=== PATIENT | female | born 1955 | race Caucasian/White ===

== ENCOUNTER 2020-09-09 08:11 | Day surgery (SDC) | payer OTHER, SELFPAY ==
[2020-09-09 08:45] VITALS: BMI 23.1
[2020-09-09] MEDS: Lactated Ringers 500 ML 20 ML IVCONT (08:45)
--- NOTE | 2020-09-09 08:50 | HO.ANESPROP2 ---
PMFSH Surgical History Surgical History Hx of section Hx of colonoscopy Hx of tubal ligation Social History Social History Patient Tobacco Use Status: Former Tobacco user Quit Date: 1987 Smoked in Last 30 Days: No Are you DNR?: No Advance Directives: No Advance Directives Information Provided: Yes Meds Allergies Allergy/AdvReac Type Severity Reaction Status Date / Time No Known Allergies Allergy Verified 09/09/20 08:24 Home Medications Medication Instructions Recorded Confirmed Last Taken Type clobetasol TOPICAL 09/09/20 Unknown History estradiol VAGINAL 09/09/20 Unknown History lovastatin 1 tab PO DAILY 09/09/20 09/09/20 Unknown History sertraline 1 tab PO DAILY 09/09/20 09/09/20 Unknown History timolol maleate drp 09/09/20 09/09/20 Unknown History Exam Exam Date and Time: September 09, 2020 0850 Height,Weight and Vital Signs: Height 5 ft 4 in Weight 61.235 kg Airway Mallampati Class: II TM Dist: >3cm Neck ROM: Full Heart: RRR Lungs: CTA
[2020-09-09 10:40] VITALS: BP 104/60; PULSE 70; RESP 16; TEMP 36.3; O2SAT 97
--- NOTE | 2020-09-09 10:42 | P.BOP_ITS ---
Brief Operative Note Date of Service: 09/09/20 Pre-op diagnosis: Screening Post-op diagnosis: other (Colon polyp) Procedure: Colonoscopy to the cecum and TI with biopsy and removal of polyp Surgeon: Thomas Field Anesthesia: MAC Was an Sprayer Machine used for this Procedure?: No Estimated blood loss (mL): 3.0 Pathology: other (A. Cecal polyp) Condition: stable Disposition: PACU
[2020-09-09 10:54] VITALS: PULSE 56; RESP 16; TEMP 36.6; O2SAT 100
--- NOTE | 2020-09-09 20:37 | OP_ITS ---
SURGEON: Thomas Field MD INDICATIONS: The patient presents for followup of personal history of tubular adenoma of the colon and colorectal cancer screening. Full consent obtained from her for this, including risks of bleeding and perforation. PREOPERATIVE DIAGNOSIS: POSTOPERATIVE DIAGNOSIS: PROCEDURE PERFORMED: Colonoscopy to the cecum and terminal ileum with biopsy and removal of polyp. ESTIMATED BLOOD LOSS: COMPLICATIONS: ANESTHESIA: ASSISTANTS: SPECIMENS: PREOPERATIVE DIAGNOSES: Colorectal cancer screening and personal history of tubular adenoma of the colon. POSTOPERATIVE DIAGNOSES: Colorectal cancer screening and personal history of tubular adenoma of the colon, small colon polyp, diverticulosis, normal anastomosis, internal hemorrhoids. PREOP MEDICATION USED: Monitored anesthesia care. DESCRIPTION OF PROCEDURE: The patient was placed in the left lateral decubitus position. The digital rectal exam revealed no abnormalities. The Olympus video pediatric colonoscope was entered into the rectum and advanced easily to the cecum. Once in the cecum, I did identify cecal pouch with appendiceal orifice and a normal-appearing ileocecal valve. The terminal ileum was cannulated and appeared normal. The scope was withdrawn back in the colon. The entire cecum was well visualized and appeared normal other than a 3 or 4 mm polyp, which was biopsied and completely removed with cold biopsy forceps. The scope was then slowly withdrawn assessing all mucosal surfaces carefully. Preparation was excellent. I did not visualize any sign of other polyps, colitis, nor angiodysplasia. A normal-appearing anastomosis appeared in the region of the distal ascending colon. There was a mild amount of sigmoid diverticulosis. In the rectum, scope was retroflexed visualizing some small internal hemorrhoids, but no other pathology. The rectal mucosa appeared normal. The scope was straightened and withdrawn from the patient. She tolerated the procedure well and was returned to recovery area in stable condition. IMPRESSION: 1. Small colon polyp, status post biopsy removal. 2. Mild sigmoid diverticulosis. 3. Small internal hemorrhoids. 4. Normal anastomosis. PLAN: The results of biopsy will be checked. I would recommend a repeat colonoscopy in 5 years for further screening. She will otherwise see me on a p.r.n. basis. MD ELIZABETH Atkinson/KAYLYN / [id number]
== END 2020-09-09 13:20 | disposition home or self-care (01) ==
PROVIDERS: PCP Family Medicine; Visit Provider Internal Medicine
PROC: 0DJD8ZZ Inspection of Lower Intestinal Tract, Via Natural or Artificial Opening Endoscopic (ICD-10-PCS; CPT 45378; principal; 2020-09-09 09:10)
DX: Z12.11 Encounter for screening for malignant neoplasm of colon (principal); Z86.010 Personal history of colon polyps; D12.0 Benign neoplasm of cecum; K57.30 Diverticulosis of large intestine without perforation or abscess without bleeding; K64.8 Other hemorrhoids; K58.0 Irritable bowel syndrome with diarrhea; A60.00 Herpesviral infection of urogenital system, unspecified; F32.9 Major depressive disorder, single episode, unspecified; Z79.899 Other long term (current) drug therapy; Z79.82 Long term (current) use of aspirin; Z98.0 Intestinal bypass and anastomosis status; Z98.51 Tubal ligation status; Z87.891 Personal history of nicotine dependence
CPT/HCPCS: 45380; 88305